=== PATIENT | female | born 1940 | race Caucasian/White ===

== ENCOUNTER 2017-04-28 13:02 | Day surgery (SDC) | END 2017-04-28 18:24 | disposition home or self-care (01) | DX: Z12.11 Encounter for screening for malignant neoplasm of colon (principal); I10 Essential (primary) hypertension; K63.5 Polyp of colon; K57.90 Diverticulosis of intestine, part unspecified, without perforation or abscess without bleeding; K43.9 Ventral hernia without obstruction or gangrene | CPT/HCPCS: 45380; 88305; J2175; J2250; J3010; Z7610 ==